=== PATIENT | female | born 1950 | race Caucasian/White ===

== ENCOUNTER 2017-06-03 15:25 | Emergency (ER) | payer MEDICARE ==
[~2017-06-03] VITALS: Ht 165.1 cm; Wt 89.8 kg
[~2017-06-03 15:25] MED LIST: BETH25 PO; BOTU100P ID; LACTCAP7 PO; LORA-475 PO; METH750T2 PO; ONDA1TAB16 PO; PANT20 PO; PROP60CA PO; SERT-129 OR; SIMV80TA OR; TOPI100 PO
[2017-06-03 15:33] VITALS: PULSE 65; RESP 16; TEMP 98.5; O2SAT 97
[2017-06-03 15:50] VITALS: BP 158/93
[2017-06-03] MEDS ORDERED: LORA-474 PO (15:58)
[2017-06-03] MEDS ORDERED: BETH25TA2 PO (16:01)
[2017-06-03] MEDS ORDERED: ATOR40TA16 PO (16:01)
[2017-06-03] MEDS ORDERED: ESCI10TA PO (16:01)
[2017-06-03] MEDS ORDERED: PROP60TA PO (16:01)
[2017-06-03] MEDS ORDERED: LISI-515 PO (16:01)
[2017-06-03] MEDS ORDERED: BACL10TA PO (16:01)
[2017-06-03] MEDS ORDERED: PANT20TA2 PO (16:01)
--- NOTE | 2017-06-03 16:01 | PD ---
HPI Chief Complaint: GI Complaint Time Seen by Provider: 15:39 Travel History International Travel<30 days: No Contact w/Intl Traveler<30days: No Traveled to known affect area: No History of Present Illness HPI The patient was seen and examined in the presence of the nurse. 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 She ran out a couple of days ago and thinks she is getting nauseous and vomiting and jittery from lack of it. She try to contact her prescribing neurologist with no success. She wants to get more medication. Symptoms severity is mild to moderate. PFSH Past Medical History Hx Anticoagulant Therapy: No Anxiety: Yes Depression: Yes Cancer: No Cardiovascular Problems: Yes (HTN, CHOL) High Cholesterol: Yes Diabetes: No Diminished Hearing: No Diverticulitis: Yes Glaucoma: No Headaches: Yes Hepatitis: No Hiatal Hernia: No Hypertension: Yes Medical other: Yes (SPASMATIC TORTICOLLIS) Musculoskeletal: Yes (SPASMOTIC TORTICOLLIS) Respiratory: Yes (SLEEP APNEA) Immunizations Current: Yes Thyroid Disease: No Tetanus Vaccination: > 5 Years Influenza Vaccination: Yes ?: Not Menopausal: Yes Tubal Ligation: Yes Past Surgical History Cholecystectomy: Yes Genitourinary Surgery: Yes (BLADDER SUSP.) Hysterectomy: Yes Oral Surgery: Yes (T & A) Tonsillectomy: Yes Other Surgery: Yes Social History Alcohol Use: Yes (WINE OCCAS) Tobacco Use: No Substance Use: No Allergies-Medications (Allergen,Severity, Reaction): Coded Allergies: sulfamethoxazole (Verified Allergy, Severe, 06/03/17) trimethoprim (Verified Allergy, Severe, 06/03/17) Reported Meds & Prescriptions Reported Meds & Active Scripts Active Ativan (Lorazepam) 1 Mg Tab 1 Mg PO Q8H Zofran Tab (Ondansetron HCl) 4 Mg Tab 4 Mg PO Q6 PRN Reported Probiotic (Lactobacillus) Cap 1 Cap PO DAILY Urecholine (Bethanechol Chloride) 25 Mg Tab 25 Mg PO QID Methocarbamol 750 Mg Tab 750 Mg PO BID Botox (Botulinum Toxin Type A) 100 Unit/Vial Inj 5 Units ID Q 3MTHS 1 Days Sertraline 100 mg (Sertraline HCl) 100 Mg Tab 100 Mg OR BID Protonix (Pantoprazole Sodium) 20 Mg Tabdr 20 Mg PO DAILY Simvastatin 80 mg (Simvastatin) 80 Mg Tab 20 Mg OR BID Topamax (Topiramate) 100 Mg Tab 100 Mg PO BID Propranolol ER (Propranolol HCl) 60 Mg Tab 60 Mg PO BID Ativan (Lorazepam) 2 Mg Tab 1 Mg PO TIDPRN Review of Systems General / Constitutional: No: Fever HENT: No: Headaches Cardiovascular: No: Chest Pain or Discomfort Physical Exam Narrative GENERAL: Well-nourished, well-developed patient in no apparent distress. SKIN: Focused skin assessment reveals no rash and nodules. Skin is Warm and dry. HEAD: Atraumatic. Normocephalic. EYES: Pupils equal and round. No scleral icterus. No injection or drainage. ENT: No nasal bleeding or discharge. Mucous membranes pink and moist. NECK: Trachea midline. No JVD. Has tremor of the neck CARDIOVASCULAR: Regular rate and rhythm. No murmur appreciated. RESPIRATORY: No accessory muscle use. Clear to auscultation. Breath sounds equal bilaterally. GASTROINTESTINAL: Abdomen soft, non-tender, nondistended. Hepatic and splenic margins not palpable. MUSCULOSKELETAL: No obvious deformities. No clubbing. No cyanosis. No edema. NEUROLOGICAL: Awake and alert. No obvious cranial nerve deficits. Motor grossly within normal limits. Normal speech. PSYCHIATRIC: Appropriate mood and affect; insight and judgment normal. Data Data Last Documented VS Vital Signs Date Time Temp Pulse Resp B/P (MAP) Pulse Ox O2 Delivery O2 Flow Rate FiO2 06/03/17 15:50 158/93 (114) 06/03/17 15:33 98.5 65 16 97 MDM Medical Decision Making Medical Screen Exam Complete: Yes Emergency Medical Condition: Yes Medical Record Reviewed: Yes Differential Diagnosis Benzodiazepine withdrawal, benzodiazepine seeking behavior, anxiety Narrative Course I have reviewed the patient's electronic medical record. I refilled 3 days worth of medication for her This will give her time to contact her prescribing physician She does not have significant withdrawal requiring inpatient care Symptoms at this time are mild Diagnosis Primary Impression: Spasmodic torticollis Additional Impression: Benzodiazepine withdrawal without complication Additional Instructions: The patient was advised to follow up with their physician and return if they worsen. The patient was warned about potential sedation for the medications they will receive on prescription. Med/Other Pt SpecificInfo: Prescription(s) given Scripts Lorazepam (Ativan) 1 Mg Tab 1 MG PO Q8H, #10 TAB 0 Refills Prov: Simeon Anaya MD 06/03/17 Disposition: 01 DISCHARGE HOME Condition: Stable Simeon Anaya MD Jun 03, 2017 16:01
== END 2017-06-03 16:18 | disposition home or self-care (01) ==
LOC: PHED 15:25
DX: G24.3 Spasmodic torticollis (principal); F13.239 Sedative, hypnotic or anxiolytic dependence with withdrawal, unspecified; T42.4X5A Adverse effect of benzodiazepines, initial encounter; I10 Essential (primary) hypertension; E78.00 Pure hypercholesterolemia, unspecified; F41.8 Other specified anxiety disorders
CPT/HCPCS: 99283